=== PATIENT | male | born 1935 | race Caucasian/White ===

== ENCOUNTER → 2018-01-27 | Outpatient (CLI) | payer OTHER ==
[~2018-01-27] MED LIST: CRESTOR5 MG PO; HYDROCODON-ACE1 EAC7 PO; LATANOPROST2.5 ML BOTH EYES; LISINOPRIL2.5 MG PO; LYRICA50 MG PO; TIMOLOL MALEATE15 M1 BOTH EYES; TIMOPTIC-XE GEL5 ML BOTH EYES; ULTRAM50 MG PO
== END | disposition home or self-care (01) ==
LOC: CDC 15:55
DX: Z01.810 Encounter for preprocedural cardiovascular examination (principal); M65.332 Trigger finger, left middle finger
CPT/HCPCS: 93000